=== PATIENT | male | born 1975 | race Caucasian/White ===

== ENCOUNTER 2018-12-26 10:11 | Emergency (ER) | payer MEDICARE, MEDICAID ==
[2018-12-26] MEDS ORDERED: Heparin 10,000 UNITS/1 ML VIAL ONE (11:19)
== END 2018-12-26 11:56 | disposition home or self-care (01) ==
LOC: BURERS 10:11
DX: Z45.2 Encounter for adjustment and management of vascular access device (principal); F41.9 Anxiety disorder, unspecified; F32.9 Major depressive disorder, single episode, unspecified; G47.00 Insomnia, unspecified; G80.9 Cerebral palsy, unspecified
CPT/HCPCS: 99283; J1644

== ENCOUNTER 2020-01-28 01:08 | Emergency (ER) | payer MEDICARE, MEDICAID ==
[2020-01-28 01:45] LABS: #Basophils 0.1 thou/uL (0.0-0.2); #Eosinphils 0.5 thou/uL (0.0-0.7); #Monocytes 0.8 thou/uL (0.11-0.59); #Neutrophils 4.6 thou/uL (1.40-6.50); %Basophils 1.4 % (0.0-1.0); %Eosinophils 5.7 % (0.0-10.0); %Lymphocytes 33.4 % (21.0-51.0); %Monocytes 8.9 % (0.0-10.0); %Neutrophils 50.6 % (42.0-75.0); Hemoglobin 13.8 g/dL (14.0-18.0); Mean Corpuscular HGB CONC 30.3 g/dL (32.0-36.0); Mean Platelet Volume 6.6 fL (7.4-10.4); Platelet Count 353 thou/uL (130-400); RBC Distribution Width 12.7 % (11.5-14.5); Red Blood Cell (RBC) Count 4.61 mill/uL (4.70-6.10)
[2020-01-28 02:00] LABS: Bilirubin Negative (Negative); Blood, Urine Large (Negative); Clarity Slightly Cloudy (Clear); Glucose, Urine (Dipstick) Negative (Negative); Ketone, Urine Trace mg/dL (Negative); Leukocyte Large (Negative); Nitrite Positive (Negative); Protein, Urine (Dipstick) 100 mg/dL (Neg-Trace); Specific Gravity, Urine 1.015 (1.005-1.030); Urobilinogen 0.2 mg/dL (Less than 2)
[2020-01-28 02:03] LABS: ALT (SGPT) 21 U/L (8-55); AST (SGOT) 18 U/L (5-34); Albumin 3.8 g/dL (3.5-5.0); Alkaline Phosphatase 88 U/L (40-110); Anion Gap 16 mmol/L (10-20); Bilirubin, Total 0.3 mg/dL (0.2-1.2); Calc. Creatinine Clearance 0 mL/min (70-130); Calcium 9.1 mg/dL (7.8-10.44); Carbon Dioxide 25 mmol/L (22-29); Chloride 104 mmol/L (98-107); Estimated GFR-MDRD Greater than 90; Globulin 3.8 g/dL (2.4-3.5); Glucose 92 mg/dL (70-105); Potassium 3.6 mmol/L (3.5-5.1); Protein, Total 7.6 g/dL (6.0-8.3); Sodium 141 mmol/L (136-145)
[2020-01-28 02:05] LABS: Bacteria/HPF 2+ HPF (None Seen); Mucous/LPF 1+ LPF (<2+); Squamous Epithelial 0-3 HPF (0-3); WBC/HPF 21-50 HPF (0-3)
[2020-01-28 02:08] LABS: BUN (Urea Nitrogen) 5 mg/dL (8.9-20.6)
[2020-01-28] MEDS ORDERED: Morphine 4 MG/ML VIAL ONE (02:20)
[2020-01-28] MEDS ORDERED: Fentanyl 100 MCG/2 ML VIAL ONE (02:51)
--- NOTE | 2020-01-28 07:14 | CT ---
PRELIMINARY REPORT/[facility]/EMERGENCY AFTER HOURS PROCEDURE: CT abdomen and pelvis without contrast: Comparison: None Findings: Right ureteral stent. The stent appears normally positioned. No calculus identified. No significant h ydronephrosis. Small stones in both kidneys. Shunt catheter terminating in the left lower abdomen. No surrounding fluid collection. Absent gallbladder. No biliary obstruction. The solid organs are otherwise unremarkable within the limits of a noncontrast study. Moderate colonic stool. No bowel obstruction, free fluid, free air, abscess or diverticulitis. No aortic aneurysm. The urinary bladder is collapsed around a suprapubic catheter. There is edema in the fat surrounding the bladder and mild edema in the fat around the right kidney. The appendix is not identified. No evidence of appendicitis. Intrathecal catheter in the lower thoracic spinal canal. Impression: Normally positioned right ureteral stent. Stranding in the fat around the urinary bladder. Right kidn ey. Correlate clinically for pyelonephritis or urinary tract infection. Possible constipation. ELECTRONICALLY SIGNED BY: Milo Ireland MD Jan 28, 2020 2:10:56 AM CDT This report is intended for review by the ordering physician only, in accordance of law. If you recei ve this report in error, please call [facility] at [phone]. FINAL REPORT CT ABDOMEN AND PELVIS WITHOUT CONTRAST: Date: 01/28/2020 Comparison is made with the 11/20/2019 study. 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 This is similar to his appearance on the prior study. The lung bases are clear, except for some dependent atelectasis. The liver, spleen, pancreas, adrenal glands, and abdominal aorta showed no acute findings within the limitations of a noncontrast study. There has been a prior cholecystectomy. A right ureteral stent has been placed since the prior CT. It appears to be in acceptable position. T here is a small amount of stranding around the right kidney and around the urinary bladder which may or may not be significant. A few tiny nonobstructing calculi are seen in each kidney. There is no cur rent sign of urinary tract obstruction. Bowel, mainly colon, is moderately distended by gas. There is a rather large amount of fecal material in the rectosigmoid region in particular. No free air or free fluid was seen. CT of the pelvis shows no pelvic masses, fluid collections, or other acute findings of concern. Subcutaneous shunt tubing is seen coming down the right side of the upper abdomen and terminating int ra-abdominally, presumably a [employer] shunt. There is no fluid collection around its tip. The patient also has an intrathecal catheter. IMPRESSION: 1. No definite acute abdominal or pelvic findings. 2. Slight stranding around the right kidney and urinary bladder. At most, this could raise the quest ion of pyelonephritis or cystitis. Correlate with other labs and exam. 3. Right ureteral stent in good position. Report in agreement with preliminary reading by [facility]. POS: HOME
== END 2020-01-28 04:12 ==
LOC: BURERS 01:08
DX: N39.0 Urinary tract infection, site not specified (principal); G47.00 Insomnia, unspecified; F41.9 Anxiety disorder, unspecified; F32.9 Major depressive disorder, single episode, unspecified; F17.210 Nicotine dependence, cigarettes, uncomplicated; Z79.899 Other long term (current) drug therapy
CPT/HCPCS: 74176; 80053; 81003; 81015; 83605; 85025; 87077; 87086; 87186; 96374; 96375; J2270; J3010

== ENCOUNTER 2021-12-22 01:26 | Emergency (ER) | payer MEDICARE, MEDICAID ==
[2021-12-22] MEDS ORDERED: Morphine 4 MG/ML VIAL ONE (01:41)
[2021-12-22] MEDS ORDERED: Ondansetron PF 4 MG/2 ML Vial ONE (01:41)
[2021-12-22 02:07] LABS: #Basophils 0.2 thou/uL (0.0-0.2); #Eosinphils 0.6 thou/uL (0.0-0.7); #Lymphocytes 3.2 thou/uL (1.20-3.40); #Monocytes 0.7 thou/uL (0.11-0.59); %Basophils 1.8 % (0.0-1.0); %Eosinophils 5.9 % (0.0-10.0); %Lymphocytes 32.8 % (21.0-51.0); %Monocytes 7.1 % (0.0-10.0); %Neutrophils 52.4 % (42.0-75.0); Hemoglobin 17.4 g/dL (14.0-18.0); Mean Corpuscular HGB CONC 34.9 g/dL (32.0-36.0); Mean Corpuscular Volume 94.4 fL (78.0-98.0); Mean Platelet Volume 6.9 fL (7.4-10.4); Platelet Count 349 thou/uL (130-400); RBC Distribution Width 11.9 % (11.5-14.5); Red Blood Cell (RBC) Count 5.27 mill/uL (4.70-6.10); White Blood Cell (WBC) Count 9.6 thou/uL (4.8-10.8)
[2021-12-22 02:17] LABS: ALT (SGPT) 36 U/L (8-55); AST (SGOT) 17 U/L (5-34); Albumin 4.4 g/dL (3.5-5.0); Alkaline Phosphatase 106 U/L (40-110); Anion Gap 18 mmol/L (10-20); BUN (Urea Nitrogen) 9 mg/dL (8.9-20.6); Bilirubin, Total 0.3 mg/dL (0.2-1.2); Calc. Creatinine Clearance 0 mL/min (70-130); Carbon Dioxide 26 mmol/L (22-29); Chloride 104 mmol/L (98-107); Estimated GFR 116; Globulin 3.5 g/dL (2.4-3.5); Glucose 92 mg/dL (70-105); Potassium 4.5 mmol/L (3.5-5.1); Protein, Total 7.9 g/dL (6.0-8.3); Sodium 143 mmol/L (136-145)
[2021-12-22] MEDS ORDERED: Bacitracin 1 PK ONE (02:53)
== END 2021-12-22 03:13 ==
LOC: BURERS 01:26
DX: L03.312 Cellulitis of back [any part except buttock and flank] (principal); F17.210 Nicotine dependence, cigarettes, uncomplicated; I10 Essential (primary) hypertension; Z79.899 Other long term (current) drug therapy
CPT/HCPCS: 80053; 83605; 85025; 96361; 96374; 96375; J2270; J2405

== ENCOUNTER 2024-01-07 07:31 | Emergency (ER) | payer MEDICARE, MEDICAID ==
[2024-01-07 07:54] LABS: #Basophils 0.1 thou/uL (0.0-0.2); #Eosinphils 0.5 thou/uL (0.0-0.7); #Lymphocytes 3.5 thou/uL (1.20-3.40); #Monocytes 0.6 thou/uL (0.11-0.59); #Neutrophils 3.2 thou/uL (1.40-6.50); %Basophils 1.7 % (0.0-1.0); %Eosinophils 6.8 % (0.0-10.0); %Lymphocytes 43.5 % (21.0-51.0); %Monocytes 7.6 % (0.0-10.0); %Neutrophils 40.3 % (42.0-75.0); Hematocrit 44.1 % (42.0-52.0); Hemoglobin 15.2 g/dL (14.0-18.0); Mean Corpuscular HGB CONC 34.4 g/dL (32.0-36.0); Mean Corpuscular Hemoglobin 31.2 pg (27.0-31.0); Mean Corpuscular Volume 90.7 fl (78.0-98.0); Mean Platelet Volume 6.1 fL (7.4-10.4); Platelet Count 350 10x3/uL (130-400); RBC Distribution Width 11.9 % (11.5-14.5); Red Blood Cell (RBC) Count 4.86 mill/uL (4.70-6.10)
[2024-01-07 08:09] LABS: Base Excess-Venous 1.2 mmol/L (-2.0 to 3.0); Bicarbonate (HCO3v) 27.9 mmol/L (22.0-28.0); Calcium, Ionized 1.21 mmol/L (1.15-1.33); Chloride 111 mmol/L (98-107); Hemoglobin - Calc 15.5 g/dL (14.0-18.0); Sodium 144 mmol/L (138-145); T. Carbon Dioxide 29.5 mmol/L (22.0-28.0); vO2 Saturation-calc 92.2 % (60.0-85.0)
[2024-01-07 08:13] LABS: ALT (SGPT) 30 U/L (8-55); AST (SGOT) 16 U/L (5-34); Albumin 4.1 g/dL (3.5-5.0); Alkaline Phosphatase 80 U/L (40-110); Anion Gap 15 mmol/L (10-20); BUN (Urea Nitrogen) 10 mg/dL (8.9-20.6); Bilirubin, Total 0.4 mg/dL (0.2-1.2); Calc. Creatinine Clearance 0 mL/min (70-130); Calcium 9.8 mg/dL (7.8-10.44); Carbon Dioxide 26 mmol/L (22-29); Chloride 107 mmol/L (98-107); Estimated GFR 117; Globulin 3.2 g/dL (2.4-3.5); Glucose 102 mg/dL (70-105); Potassium 4.1 mmol/L (3.5-5.1); Protein, Total 7.3 g/dL (6.0-8.3); Sodium 144 mmol/L (136-145)
[2024-01-07 08:15] LABS: Bilirubin Negative (Negative); Blood, Urine Negative (Negative); Glucose, Urine (Dipstick) Negative (Negative); Ketone, Urine Negative (Negative); Leukocyte Large (Negative); Nitrite Positive (Negative); Protein, Urine (Dipstick) Trace mg/dL (Neg-Trace); Urobilinogen 0.2 mg/dL (Less than 2); pH, Urine 8.5 (5.0-9.0)
[2024-01-07 08:24] LABS: Clarity Cloudy (Clear)
[2024-01-07 08:25] LABS: Bacteria/HPF 2+ HPF (None Seen); CAUTI Indications for Culture Dysuria,urgency,freq; Triple Phosphate Crystal 2+ HPF (None Seen); WBC/HPF 21-50 HPF (0-3)
[2024-01-07 08:26] LABS: Urine Culture Reflex Yes Yes
[2024-01-07] MEDS ORDERED: Nitrofurantoin Monohyd/M-Cryst 100 MG CAP ONE (08:34)
== END 2024-01-07 08:55 ==
LOC: BURERS 07:31
DX: N39.0 Urinary tract infection, site not specified (principal); G91.9 Hydrocephalus, unspecified; G82.50 Quadriplegia, unspecified; M48.02 Spinal stenosis, cervical region; M43.26 Fusion of spine, lumbar region; F17.210 Nicotine dependence, cigarettes, uncomplicated
CPT/HCPCS: 36415; 70450; 80053; 81001; 82330; 82435; 82803; 83605; 84132; 84295; 85014; 85025; 87086